=== PATIENT | female | born 1985 | race Caucasian/White ===

== ENCOUNTER 2020-11-14 20:47 | Emergency (ER) | payer OTHER, MEDICAID ==
[~2020-11-14] VITALS: Ht 162.6 cm; Wt 68.2 kg
[2020-11-14 21:55] LABS: BASO % 0.5 % (0.0-2.0); EOS # 0.1 (0.0-0.7); EOS % 1.3 % (0-4.0); GRAN # 3.3 (1.4-6.5); GRAN % 54.2 % (42.2-75.2); HEMATOCRIT 38.6 % (37.0-47.0); HEMOGLOBIN 12.9 g/dl (12.5-16.0); LYMPH # 1.9 (1.2-3.4); LYMPH % 32.1 % (20.0-51.0); MEAN CELL VOLUME 98 fl (80.0-100.0); MEAN CORPUSCULAR HEMOGLOBIN 33 pg (27.0-31.0); MEAN CORPUSCULAR HGB CONC 33 g/dl (33.0-37.0); MEAN PLATELET VOLUME 10.5 fl (7.4-10.4); MONO # 0.7 (0.1-0.6); MONO % 11.7 % (1.7-9.3); PLATELET COUNT 247 K/mm3 (130-400); RED BLOOD COUNT 3.96 M/mm3 (4.10-5.30); REDCELL DISTRIBUTION WIDTH-CV 12.3 % (11.5-14.5)
[2020-11-14 21:55] LABS: COLLECTION METHOD CLEAN CATCH
[2020-11-14 22:01] LABS: MUCOUS Present /lpf; PH 6 (5-8); SQUAMOUS EPITHELIAL 0-2 /hpf; URINE APPEARANCE Clear; URINE BACTERIA None Seen /hpf; URINE BILIRUBIN Negative (NEGATIVE); URINE BLOOD Negative (NEGATIVE); URINE COLOR Yellow; URINE GLUCOSE Negative (NEGATIVE); URINE KETONE Negative (NEGATIVE); URINE LEUKOCYTE ESTERASE Negative (NEGATIVE); URINE NITRATE Negative (NEGATIVE); URINE PROTEIN(semi-quant) Negative (NEGATIVE); URINE RBC 0-2 /hpf
[2020-11-14 22:09] LABS: ALANINE AMINOTRANSFERASE 12 U/L (4-34); ALKALINE PHOSPHATASE 41 U/L (50-136); ANION GAP 6 mmol/L (7-16); AST,SGOT 19 U/L (15-37); BILIRUBIN,TOTAL < 0.1 mg/dL (0.0-1.0); BLOOD UREA NITROGEN 10 mg/dL (7-17); CALCIUM 8.8 mg/dL (8.4-10.2); CARBON DIOXIDE 28 mmol/L (22-30); CHLORIDE 104 mmol/L (98-107); CREATININE, serum 0.66 (0.52-1.25); GLUCOSE 62 mg/dL (74-106); POTASSIUM 3.8 mmol/L (3.4-5.0); SODIUM 138 mmol/L (137-145); TOTAL PROTEIN 6.2 gm/dL (6.4-8.2)
[2020-11-15 00:03] VITALS: BP 115/76; PULSE 86; TEMP 98
== END 2020-11-15 00:03 | disposition home or self-care (01) ==
LOC: COL.ER 20:47
PROVIDERS: Physician Assistant
DX: O26.891 Other specified pregnancy related conditions, first trimester (principal); R10.30 Lower abdominal pain, unspecified; Z3A.01 Less than 8 weeks gestation of pregnancy

== ENCOUNTER 2020-11-24 15:51 | Emergency (ER) | payer OTHER, MEDICAID ==
[~2020-11-24] VITALS: Ht 162.6 cm; Wt 68.2 kg
[2020-11-24 16:25] VITALS: TEMP 98
[2020-11-24 17:36] LABS: COLLECTION METHOD CLEAN CATCH
[2020-11-24 17:39] LABS: BASO % 0.2 % (0.0-2.0); EOS % 0.5 % (0-4.0); GRAN # 5.4 (1.4-6.5); GRAN % 66.9 % (42.2-75.2); HEMATOCRIT 42.2 % (37.0-47.0); HEMOGLOBIN 14.3 g/dl (12.5-16.0); LYMPH % 24.8 % (20.0-51.0); MEAN CELL VOLUME 96 fl (80.0-100.0); MEAN CORPUSCULAR HEMOGLOBIN 33 pg (27.0-31.0); MEAN CORPUSCULAR HGB CONC 34 g/dl (33.0-37.0); MEAN PLATELET VOLUME 9.5 fl (7.4-10.4); MONO # 0.6 (0.1-0.6); MONO % 7.4 % (1.7-9.3); PLATELET COUNT 311 K/mm3 (130-400); REDCELL DISTRIBUTION WIDTH-CV 13.1 % (11.5-14.5)
[2020-11-24 17:48] LABS: MUCOUS Present /lpf; PH 7 (5-8); SQUAMOUS EPITHELIAL 0-2 /hpf; URINE APPEARANCE Clear; URINE BACTERIA None Seen /hpf; URINE BILIRUBIN Negative (NEGATIVE); URINE BLOOD Negative (NEGATIVE); URINE COLOR Yellow; URINE GLUCOSE Negative (NEGATIVE); URINE KETONE Negative (NEGATIVE); URINE LEUKOCYTE ESTERASE Negative (NEGATIVE); URINE NITRATE Negative (NEGATIVE); URINE PROTEIN(semi-quant) Negative (NEGATIVE); URINE RBC 0-2 /hpf; URINE UROBILINOGEN Negative (NEGATIVE)
[2020-11-24 17:49] LABS: ALBUMIN 4.4 gm/dL (3.5-5.0); BILIRUBIN,TOTAL 0.2 mg/dL (0.0-1.0); CALCIUM 9.5 mg/dL (8.4-10.2); CREATININE, serum 0.63 (0.52-1.25); TOTAL PROTEIN 7.4 gm/dL (6.4-8.2)
[2020-11-24 20:05] VITALS: BP 125/85; PULSE 87
== END 2020-11-24 20:05 | disposition home or self-care (01) ==
LOC: COL.ER 15:51
PROVIDERS: Physician Assistant
DX: O99.411 Diseases of the circulatory system complicating pregnancy, first trimester (principal); I60.9 Nontraumatic subarachnoid hemorrhage, unspecified; Z3A.01 Less than 8 weeks gestation of pregnancy
CPT/HCPCS: J7030

== ENCOUNTER 2020-12-09 19:01 | Emergency (ER) | payer OTHER, MEDICAID ==
[~2020-12-09] VITALS: Ht 162.6 cm; Wt 68.2 kg
[2020-12-09 19:15] VITALS: TEMP 98.3
[2020-12-09 20:30] LABS: BASO % 0.2 % (0.0-2.0); EOS % 0.1 % (0-4.0); GRAN % 71.8 % (42.2-75.2); HEMATOCRIT 40.2 % (37.0-47.0); HEMOGLOBIN 14.2 g/dl (12.5-16.0); LYMPH # 1.8 (1.2-3.4); LYMPH % 21.5 % (20.0-51.0); MEAN CELL VOLUME 93 fl (80.0-100.0); MEAN CORPUSCULAR HEMOGLOBIN 33 pg (27.0-31.0); MEAN CORPUSCULAR HGB CONC 35 g/dl (33.0-37.0); MEAN PLATELET VOLUME 9.7 fl (7.4-10.4); MONO # 0.5 (0.1-0.6); MONO % 6.2 % (1.7-9.3); PLATELET COUNT 256 K/mm3 (130-400); RED BLOOD COUNT 4.31 M/mm3 (4.10-5.30); REDCELL DISTRIBUTION WIDTH-CV 12.8 % (11.5-14.5)
[2020-12-09 20:40] LABS: ALBUMIN 4.3 gm/dL (3.5-5.0); BILIRUBIN,TOTAL 0.5 mg/dL (0.0-1.0); CREATININE, serum 0.54 (0.52-1.25); POTASSIUM 3.5 mmol/L (3.4-5.0); TOTAL PROTEIN 6.9 gm/dL (6.4-8.2)
[2020-12-09 20:41] LABS: COLLECTION METHOD CLEAN CATCH
[2020-12-09 20:46] LABS: MUCOUS Present /lpf; PH 6 (5-8); URINE APPEARANCE Hazy; URINE BACTERIA None Seen /hpf; URINE BILIRUBIN Negative (NEGATIVE); URINE BLOOD Negative (NEGATIVE); URINE COLOR Yellow; URINE GLUCOSE Negative (NEGATIVE); URINE KETONE 1+ (NEGATIVE); URINE LEUKOCYTE ESTERASE Negative (NEGATIVE); URINE NITRATE Negative (NEGATIVE); URINE PROTEIN(semi-quant) Negative (NEGATIVE); URINE RBC 0-2 /hpf
[2020-12-09] MEDS ORDERED: ZOFRAN ODT4 MG PO (22:00)
[2020-12-09] MEDS ORDERED: FLEXERIL5 MG PO (22:00)
[2020-12-09 22:18] VITALS: BP 110/68; PULSE 84
== END 2020-12-09 22:20 | disposition home or self-care (01) ==
LOC: COL.ER 19:01
PROVIDERS: Student in an Organized Health Care Education/Training Program
DX: M79.10 Myalgia, unspecified site (principal); Z32.02 Encounter for pregnancy test, result negative
CPT/HCPCS: J2405; J3010; J7030

== ENCOUNTER 2021-05-18 22:08 | Outpatient (CLI) | payer MEDICAID ==
[~2021-05-18] VITALS: Ht 162.6 cm; Wt 81.8 kg
[~2021-05-18 22:08] MED LIST: FLEXERIL5 MG PO; ZOFRAN ODT4 MG PO
[2021-05-18 22:25] VITALS: BP 121/84; PULSE 91; TEMP 97.9
--- NOTE | 2021-05-18 22:30 | NUR ---
2230 G4L3 32.4 WEEL GEST TP LR5 WITH C/O BACKACHE IN LOWER BACK ABOVE HIPS WHICH STARTED TODAY AROUND 1500 AND HAS NOT GOTTEN BETTER AND ABD CRAMPING. EFM ON. FHT BASELINE 145 WITH ACCELS TO 160'S WITH MOVEMENT. SVE FT TO CLOSED/0/ HIGH. ADM ASSESSMENT DONE. STATES BACKPAIN AND CRAMPING ARE CONTINUOUS. STATES HAS HAD A UTI BEFORE AND THIS DOES NOT FEEL LIKE THAT. UTERUS PALPATED FOR SEVERAL MINUTES AND NO TIGHTENING FELT AND NO CONTRACTIONS NOTED OF EFM.
[2021-05-18] MEDS ORDERED: LEVOXYL0.075 MG PO (22:33)
[2021-05-18] MEDS ORDERED: PROAIR HFA0.09 MG/AC IH (22:34)
[2021-05-18] MEDS ORDERED: PRENATAL TABLET PO (22:35)
--- NOTE | 2021-05-18 23:10 | NUR ---
2310 NO CONTRACTIONS NOTED OR FELT. RESTING. STATES BACK CONTINOUS TO HURT. DR ART NOTIFIED AND ORDER TO DISMISS RECEIVED 2320 DISMISSED TO HOME WITH INSTRUCTIONS.
== END 2021-05-18 23:20 | disposition home or self-care (01) ==
LOC: LDRO 22:08 → LDR 22:20 → LDRO 23:20
DX: O26.893 Other specified pregnancy related conditions, third trimester (principal); M54.9 Dorsalgia, unspecified; R10.9 Unspecified abdominal pain; Z3A.32 32 weeks gestation of pregnancy
CPT/HCPCS: OP

== ENCOUNTER 2021-06-30 09:00 | Inpatient (IN) | payer MEDICAID ==
[2021-06-30] VITALS (44 sets, daily range): BP systolic 95–134; BP diastolic 54–84; PULSE 78–121; TEMP 97.5–98.3
[~2021-06-30] VITALS: Ht 162.6 cm; Wt 85.9 kg
[~2021-06-30 09:00] MED LIST changes: +LEVOXYL0.075 MG PO; +PRENATAL TABLET PO; +PROAIR HFA0.09 MG/AC IH
[2021-06-30] MEDS ORDERED: RT ADVAIR 228 DISKUS IH (09:20)
[2021-06-30 09:56] LABS: BASO % 0.2 % (0.0-2.0); EOS # 0.2 K/mm3 (0.0-0.7); EOS % 1.6 % (0.0-4.0); GRAN # 9.3 K/mm3 (1.4-6.5); GRAN % 75.3 % (42.2-75.2); HEMATOCRIT 37.4 % (37.0-47.0); HEMOGLOBIN 13.5 g/dl (12.5-16.0); LYMPH # 1.7 K/mm3 (1.2-3.4); LYMPH % 14.1 % (20.0-51.0); MEAN CELL VOLUME 94 fl (80.0-100.0); MEAN CORPUSCULAR HEMOGLOBIN 34 pg (27-31); MEAN CORPUSCULAR HGB CONC 36 g/dl (33.0-37.0); MEAN PLATELET VOLUME 9.8 fl (7.4-10.4); MONO % 8.1 % (1.7-9.3); PLATELET COUNT 221 K/mm3 (130-400); RED BLOOD COUNT 3.99 M/mm3 (4.10-5.30); REDCELL DISTRIBUTION WIDTH-CV 12.8 % (11.5-14.5)
--- NOTE | 2021-06-30 10:07 | NUR ---
0915 Patient here from home stating water broke at 0800. no contractions at this time but has leaking fluid. Assessment completed. SVE /3 amniotrace positive. consents signed. Dr Venegas updated. orders given to admit for labor. baby very active. fht 145 good acclerations noted. no contractions on monitor.
--- NOTE | 2021-06-30 15:21 | NUR ---
1521Patient reports increased rectal pressure and urge to push. SVE C/+1. Dr. Venegas on unit and updated on pt. 1525Dr. Venegas to bedside for delivery. Pt begins to push with contractions with Dr. Venegas and nursing staff at bedside. Strong maternal effort. Moves vertex 1533Spontaneous vaginal delivery of viable female infant over intact perineum. Nuchal cord x2 reduced on perineum. Yale to mother's chest where dried and stimulated by nursery RN. 1535Cord clamped x2 and cut by father of . Care of assumed by Davion Mccall RN. 1536Spontaneous and intact delivery of placenta. Pitocin to 333ml/hr per orders. Fundus firm, midline, and bleeding minimal. Haylie care provided, pads changed, and ice pack to perineum. Plan of care and safety precautions reviewed. See doctor dictation, anesthesia record, and nurses notes.
--- NOTE | 2021-06-30 16:30 | NUR ---
163Epidural catheter removed by Davion Sommer CRNA.
[2021-06-30] MEDS ORDERED: MOTRIN 800800 MG/TAB PO (19:50)
[2021-07-01 03:50] VITALS: BP 116/72; PULSE 97; TEMP 97.7
[2021-07-01 08:05] VITALS: BP 119/74; PULSE 96; TEMP 97.6
[2021-07-01 11:43] VITALS: BP 108/74; PULSE 97; TEMP 97.4
--- NOTE | 2021-07-01 16:18 | NUR ---
1600DISCHARGE INSTRUCTIONS REVIEWED WITH PATIENT. PATIENT VERBALIZED UNDERSTANDING. AWAITING BABY'S BILIRUBIN RESULTS TO LEAVE.
--- NOTE | 2021-07-01 17:00 | NUR ---
1640ALL PERSONAL BELONGINGS GATHERED FROM PATIENT ROOM. PATIENT LEFT AMBULATORY AND IN NO APPARENT DISTRESS. PATIENT ACCOMPANIED BY SIGNIFICANT OTHER AND THIS RN.
== END 2021-07-01 16:40 | disposition home or self-care (01) | DRG 807 ==
LOC: LDRO 09:00 → OB 09:19 → LDR 09:19 → OB 17:30
PROVIDERS: ADMIT Obstetrics & Gynecology
PROC: 10E0XZZ Delivery of Products of Conception, External Approach (ICD-10-PCS; principal; 2021-06-30)
PROC: 3E033VJ Introduction of Other Hormone into Peripheral Vein, Percutaneous Approach (ICD-10-PCS; 2021-06-30)
DX: O36.5930 Maternal care for other known or suspected poor fetal growth, third trimester, not applicable or unspecified (principal); Z37.0 Single live birth; O99.344 Other mental disorders complicating childbirth; F31.9 Bipolar disorder, unspecified; F43.10 Post-traumatic stress disorder, unspecified; O99.284 Endocrine, nutritional and metabolic diseases complicating childbirth; E03.9 Hypothyroidism, unspecified; O99.52 Diseases of the respiratory system complicating childbirth; J45.909 Unspecified asthma, uncomplicated; O69.81X0 Labor and delivery complicated by cord around neck, without compression, not applicable or unspecified; Z3A.38 38 weeks gestation of pregnancy; Z86.16 Personal history of COVID-19
CPT/HCPCS: J2590; J2795; J7120

== ENCOUNTER 2022-06-13 13:14 | Emergency (ER) | payer MEDICAID ==
[~2022-06-13] VITALS: Ht 162.6 cm; Wt 63.6 kg
[~2022-06-13 13:14] MED LIST changes: +MOTRIN 800800 MG/TAB PO; +RT ADVAIR 228 DISKUS IH
[2022-06-13 13:34] VITALS: TEMP 98
[2022-06-13 15:27] LABS: COLLECTION METHOD CLEAN CATCH
[2022-06-13 15:41] LABS: URINE APPEARANCE Clear (CLEAR/HAZY); URINE COLOR Yellow (YELLOW)
[2022-06-13 15:45] LABS: URINE BLOOD Negative (NEGATIVE); URINE GLUCOSE Negative (NEGATIVE); URINE KETONE Negative (NEGATIVE); URINE NITRATE Negative (NEGATIVE); URINE PROTEIN(semi-quant) Negative (NEGATIVE); URINE UROBILINOGEN 0.2 E.U/dL (0.2-1.0)
[2022-06-13 15:46] LABS: MUCOUS Present (NOT PRESENT); SQUAMOUS EPITHELIAL 0-2 /hpf (0-10); URINE BACTERIA Rare /hpf (NONE SEEN); URINE RBC 0-2 /hpf (0-2)
[2022-06-13 16:16] VITALS: BP 105/68; PULSE 75
== END 2022-06-13 16:30 | disposition home or self-care (01) ==
LOC: COL.ER 13:14
PROVIDERS: Physician Assistant
DX: O26.891 Other specified pregnancy related conditions, first trimester (principal); R35.0 Frequency of micturition; R03.0 Elevated blood-pressure reading, without diagnosis of hypertension

== ENCOUNTER 2023-01-26 06:01 | Inpatient (IN) | payer MEDICAID ==
[~2023-01-26] VITALS: Ht 162.6 cm; Wt 84.5 kg
[2023-01-26] VITALS (50 sets, daily range): BP systolic 86–130; BP diastolic 45–83; PULSE 68–109; TEMP 97.5–97.9
[~2023-01-26 06:01] MED LIST changes: +FORTAMET500 M1 PO
--- NOTE | 2023-01-26 06:10 | NUR ---
PATIENT AMBULATORY TO UNIT WITH SIGNIFICANT OTHER, BENIGNO. PATIENT ORIENTED TO LABOR ROOM 5 AND ASSISTED INTO A GOWN. EFM AND TOCO PLACED AND TRACING, ASSESSMENTS COMPLETED, CONSENTS EXPLAINED AND SIGNED. PATIENT REPORTS GOOD MOVEMENT, PATIENT DENIES LEAKING OF FLUID, VAGINAL BLEEDING OR CONTRACTIONS.
[2023-01-26 07:21] LABS: BASO % 0.2 % (0.0-2.0); EOS # 0.2 K/mm3 (0.0-0.7); EOS % 2.2 % (0.0-4.0); GRAN # 6.3 K/mm3 (1.4-6.5); HEMOGLOBIN 13.9 g/dl (12.5-16.0); LYMPH # 1.8 K/mm3 (1.2-3.4); MEAN CELL VOLUME 96 fl (80.0-100.0); MEAN CORPUSCULAR HEMOGLOBIN 34 pg (27-31); MEAN CORPUSCULAR HGB CONC 36 g/dl (33.0-37.0); MEAN PLATELET VOLUME 9.8 fl (7.4-10.4); MONO # 0.6 K/mm3 (0.1-0.6); PLATELET COUNT 217 K/mm3 (130-400); RED BLOOD COUNT 4.08 M/mm3 (4.10-5.30); REDCELL DISTRIBUTION WIDTH-CV 12.9 % (11.5-14.5)
--- NOTE | 2023-01-26 07:22 | NUR ---
0718- TO PATIENT BEDSIDE FOR AROM AND TO ASSESS PATIENT. 0722- SVE 3CM, AROM AT THIS TIME. FLUID NOT LEAKING IMMEDIATELY.
--- NOTE | 2023-01-26 07:45 | NUR ---
THIS RN TO PATIENTS ROOM TO INCREASE PITOCIN. PATIENT REPORTS INCREASED LEAKING OF FLUID. BLOOD TINGED FLUID NOTED ON TOWEL BETWEEN PATIENTS LEGS. PERICARE PROVIDED BY THIS RN.
--- NOTE | 2023-01-26 08:05 | NUR ---
PATIENT REQUESTING EPIDURAL, FLUID BOLUS STARTED. TAYLOR HERMAN CALLED FOR PLACEMENT.
--- NOTE | 2023-01-26 09:00 | NUR ---
0844- TAYLOR HERMAN IN PATIENT ROOM FOR EPDIURAL PLACEMENT. 0845- DIFFICULTY TRACING FHR DUE TO MATERNAL POSITION. 0900- FHR TRACING RESUMES, PATIENT IS STILL SITTING FOR EPIDURAL PLACEMENT. 0911- TEST DOSE AT THIS TIME BY TAYLOR HERMAN. PATIENT TOLERATES WELL. THIS RN REMAINS AT BEDSIDE TO ASSESS VITAL SIGNS.
--- NOTE | 2023-01-26 12:15 | NUR ---
TO BEDSIDE TO ASSESS PATIENT PROGRESS. SVE -/0.
--- NOTE | 2023-01-26 12:45 | NUR ---
TO [facility] TO ASSESS PROGRESS. SVE .
--- NOTE | 2023-01-26 16:00 | NUR ---
TO PATIENTS ROOM TO ASSESS LABOR PROGRESS. SVE /+2. SIDDIQUI DISCONTINUED AND ROOM PREPARED FOR DELIVERY.
--- NOTE | 2023-01-26 16:10 | NUR ---
1605- GOWNED FOR DELIVERY AND BEGINS PUSHING WITH PATIENT. 1608- SPONTANEOUS DELIVERY OF HEAD AND BODY AT THIS TIME. 1610- SPONTANEOUS DELIVERY OF PLACENTA AT THIS TIME. PITOCIN STARTED AT 333mU/HR ORDERED AND PER PROTOCOL.
[2023-01-26] MEDS ORDERED: MOTRIN 800800 MG/TAB PO (16:28)
--- NOTE | 2023-01-26 18:10 | NUR ---
This RN to bedside to assist patient in ambulation. Patient is able to stand independently and this RN walks alongside patient to restroom. Patient sits on toilet and is unable to void, pericare performed by patient. Patient assisted into clean gown and mesh underwear. Patient feels steady on her feet and walks independently to room 218.
[2023-01-27 04:00] VITALS: BP 113/80; PULSE 72; TEMP 97.2
--- NOTE | 2023-01-27 09:52 | NUR ---
Initial visit; Parents thanked Manager Production for looking in on them and offering congratulations and God's blessings for the of their daughter. Manager Production thanked family for choosing [facility].
[2023-01-27 10:30] VITALS: BP 113/71; PULSE 88; TEMP 97.5
[2023-01-27 17:15] VITALS: BP 119/76; PULSE 74; TEMP 97.7
[2023-01-27 18:51] VITALS: BP 112/75; PULSE 76; TEMP 97.8
[2023-01-28 07:30] VITALS: BP 93/63; PULSE 83; TEMP 97.3
--- NOTE | 2023-01-28 10:15 | NUR ---
Discharge instructions and follow up care reviewed with pt and at the bedside. Both verbalized an understanding, agreed with the plan and states no questions or concerns at this time.
== END 2023-01-28 10:18 | disposition home or self-care (01) | DRG 807 ==
LOC: LDR 06:01 → OB 06:23 → LDR 06:23 → OB 18:30
PROVIDERS: ADMIT Obstetrics & Gynecology
PROC: 10E0XZZ Delivery of Products of Conception, External Approach (ICD-10-PCS; principal; 2023-01-26)
PROC: 10907ZC Drainage of Amniotic Fluid, Therapeutic from Products of Conception, Via Natural or Artificial Opening (ICD-10-PCS; 2023-01-26)
PROC: 3E033VJ Introduction of Other Hormone into Peripheral Vein, Percutaneous Approach (ICD-10-PCS; 2023-01-26)
DX: O24.425 Gestational diabetes mellitus in childbirth, controlled by oral hypoglycemic drugs (principal); Z37.0 Single live birth; O99.284 Endocrine, nutritional and metabolic diseases complicating childbirth; E03.9 Hypothyroidism, unspecified; O99.52 Diseases of the respiratory system complicating childbirth; J45.909 Unspecified asthma, uncomplicated; O99.344 Other mental disorders complicating childbirth; F31.9 Bipolar disorder, unspecified; F43.10 Post-traumatic stress disorder, unspecified; O69.81X0 Labor and delivery complicated by cord around neck, without compression, not applicable or unspecified; Z3A.37 37 weeks gestation of pregnancy; Z79.84 Long term (current) use of oral hypoglycemic drugs; Z79.890 Hormone replacement therapy; Z23 Encounter for immunization
CPT/HCPCS: J2405; J2590; J2795; J7120